=== PATIENT | male | born 1955 | race African-American/Black ===

== ENCOUNTER 2019-01-02 22:05 | Emergency (ER) | payer OTHER ==
[2019-01-02] MEDS ORDERED: ONDANSETRON 4 MG TAB.RAPDIS PO ONE (22:45)
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
[2019-01-02 23:20] LABS: ABSOLUTE BASOPHILS # (AUTO) 0.1 10^3/uL (0.0-0.2); ABSOLUTE LYMPHOCYTES (AUTO) 2.1 10^3/uL (0.5-4.7); ABSOLUTE MONOCYTES (AUTO) 0.8 10^3/uL (0.1-1.4); ABSOLUTE NEUT (AUTO) 9.9 10^3/uL (1.7-8.2); BASOPHILS % (AUTO) 0.7 % (0-2); EOSINOPHILS % (AUTO) 0.3 % (0-6); HEMATOCRIT 31.3 % (37.9-51.0); HEMOGLOBIN 10.8 g/dL (13.5-17.0); LYMPHOCYTES % (AUTO) 16.1 % (13-45); MEAN CORPUSCULAR HEMOGLOBIN 30.3 pg (27.0-33.4); MEAN CORPUSCULAR HGB CONC 34.6 g/dL (32.0-36.0); MEAN CORPUSCULAR VOLUME 87 fl (80-97); MONOCYTES % (AUTO) 5.9 % (3-13); PLATELET COUNT 530 10^3/uL (150-450); RED BLOOD COUNT 3.58 10^6/uL (4.35-5.55); RED CELL DISTRIBUTION WIDTH 13.9 % (11.5-14.0); TOTAL CELLS COUNTED % (AUTO) 100 %; WHITE BLOOD COUNT 12.8 10^3/uL (4.0-10.5)
[2019-01-02 23:33] LABS: INTERNATIONAL RATION (INR) 0.94; PROTHROMBIN TIME 13.1 SEC (11.4-15.4)
[2019-01-02 23:34] LABS: ALANINE AMINOTRANSFERASE 123 U/L (21-72); ALBUMIN 3.8 g/dL (3.5-5.0); ALKALINE PHOSPHATASE 105 U/L (38-126); ASPARTATE AMINO TRANSFERASE 151 U/L (17-59); BILIRUBIN,DIRECT 0.4 mg/dL (0.0-0.4); BILIRUBIN,TOTAL 0.9 mg/dL (0.2-1.3); BLOOD UREA NITROGEN 17 mg/dL (7-20); CALCIUM 8.8 mg/dL (8.4-10.2); GLUCOSE 137 mg/dL (75-110); PARTIAL THROMBOPLASTIN TIME 34.9 SEC (23.5-35.8); POTASSIUM 3.7 mmol/L (3.6-5.0); TOTAL PROTEIN 7.6 g/dL (6.3-8.2)
[2019-01-02 23:39] LABS: ANION GAP 8 (5-19); CARBON DIOXIDE 30 mmol/L (22-30); CHLORIDE 98 mmol/L (98-107); SODIUM 135.8 mmol/L (137-145)
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
[2019-01-03] MEDS ORDERED: ONDANSETRON HCL INJ/PF 4 MG/2 ML SDV IV ONE (00:42)
[2019-01-03 02:59] VITALS: BP 138/67
== END 2019-01-03 03:12 | disposition short-term general hospital (02) ==
LOC: ER 22:05
DX: I62.00 Nontraumatic subdural hemorrhage, unspecified (principal); H53.8 Other visual disturbances; S02.81XA Fracture of other specified skull and facial bones, right side, initial encounter for closed fracture; V49.9XXA Car occupant (driver) (passenger) injured in unspecified traffic accident, initial encounter; R11.2 Nausea with vomiting, unspecified
CPT/HCPCS: 99285; 96374; 36415; 85025; 85610; 85730; 80053; 70450; 70486; S0119; J2405